=== PATIENT | male | born 1960 | race Caucasian/White ===

== ENCOUNTER → 2016-07-19 | Outpatient (CLI) | payer BC ==
--- NOTE | 2016-07-24 10:21 | P.ARTDOP ---
Arterial Doppler LOWER EXTREMITY ARTERIAL DOPPLER: DATE OF SERVICE: 07/19/2016 Reason for study: Decreased pulses, suspect vasospasm. Doppler waveforms: Multiphasic bilaterally throughout. Pulse volume recording: Normal configuration. Pressure gradients: None. Ankle-brachial indices: Greater than 1 bilaterally. Toe pressures: 161 on the right, 159 on the left Impression: Normal study.
== END | disposition home or self-care (01) ==
LOC: RADUSWWP 12:54
PROVIDERS: ATTEND Family Medicine
DX: I73.9 Peripheral vascular disease, unspecified (principal)
CPT/HCPCS: 93923

== ENCOUNTER 2022-11-20 08:15 | Inpatient (IN) | payer BC, OTHER ==
[2022-11-20] MEDS ORDERED: ASPIRIN 81 MG PO STA (08:30)
[2022-11-20] MEDS ORDERED: NITROGLYCERIN OINT 1 INCH/GM PACKET TOPICAL STA (08:30)
--- NOTE | 2022-11-20 08:33 | ED ---
General Adult HPI - General Chief complaint: Chest Pain Stated complaint: chest pressure Time Seen by Provider: 11/20/22 08:28 Source: patient, RN notes reviewed Mode of arrival: ambulatory Limitations: no limitations - History of Present Illness Initial comments: Patient is a pleasant 62-year-old male presenting to the emergency department with concerns with chest discomfort. Onset of symptoms was a couple hours ago while driving to work. Discomfort like pressure indigestion. Discomfort was 7/10 with some radiation towards the left arm. Discomfort is improved and only 3/10 at this time. No associated dyspnea or diaphoresis. Patient states mild nausea. No history of similar symptoms previously. - Related Data Home Medications Medication Instructions Recorded Confirmed Aspirin EC [Ecotrin Low Dose] 162 mg PO ONCE PRN 11/20/22 11/20/22 Canagliflozin [Invokana] 300 mg PO DAILY 11/20/22 11/20/22 Glimepiride [Amaryl] 1 mg PO DAILY 11/20/22 11/20/22 Irbesartan [Avapro] 150 mg PO DAILY 11/20/22 11/20/22 Omeprazole 20 mg PO DAILY 11/20/22 11/20/22 Pioglitazone [Actos] 30 mg PO DAILY 11/20/22 11/20/22 atenoloL 25 mg PO DAILY 11/20/22 11/20/22 methocarbamoL [Robaxin-750] 750 mg PO Q6H PRN 11/20/22 11/20/22 Allergies Allergy/AdvReac Type Severity Reaction Status Date / Time rosuvastatin [From Crestor] AdvReac Muscle pain Verified 11/20/22 09:32 Review of Systems ROS Statement: Those systems with pertinent positive or pertinent negative responses have been documented in the HPI. ROS Other: All systems not noted in ROS Statement are negative. Constitutional: Denies: fever Eyes: Denies: eye pain ENT: Denies: ear pain Respiratory: Denies: cough Cardiovascular: Reports: as per HPI, chest pain Endocrine: Denies: fatigue Gastrointestinal: Reports: as per HPI. Denies: abdominal pain, vomiting Genitourinary: Denies: dysuria Musculoskeletal: Denies: back pain Skin: Denies: rash Neurological: Denies: weakness General Exam Limitations: no limitations General appearance: alert, in no apparent distress Head exam: Present: normocephalic Eye exam: Present: normal appearance Neck exam: Present: normal inspection Respiratory exam: Present: normal lung sounds bilaterally. Absent: chest wall tenderness Cardiovascular Exam: Present: regular rate, normal rhythm, normal heart sounds Expanded Peripheral pulses: 2+: Radial (R), Radial (L), Dorsalis Pedis (R), Dorsalis Pedis (L) GI/Abdominal exam: Present: soft. Absent: tenderness Extremities exam: Present: normal inspection. Absent: pedal edema, calf tenderness Neurological exam: Present: alert Psychiatric exam: Present: normal affect, normal mood Skin exam: Present: normal color Course Vital Signs 11/20/22 11/20/22 08:22 08:34 Temperature 98.1 F Pulse Rate 97 64 Respiratory 18 18 Rate Blood Pressure 173/93 180/104 O2 Sat by Pulse 99 99 Oximetry - Reevaluation(s) Reevaluation #1: 11/20/22 09:04 Case was discussed with Dr. Santos who will come evaluate EKG Findings - EKG Results: EKG: interpreted by ERMD (some inferior ST depression. Borderline elevation in aVL and lead 1.), sinus rhythm, normal axis, normal QRS Medical Decision Making - Medical Decision Making Was pt. sent in by a medical professional or institution (, PA, RAW STOCK DYEING MACHINE TENDER, urgent care, hospital, or prison...) When possible be specific @ -[No] Did you speak to anyone other than the patient for history (EMS, parent, family, police, friend...)? What history was obtained from this source @ - is present and helps quite history including history of not having similar symptoms previous Did you review nursing and triage notes (agree or disagree)? Why? @ -[I reviewed and agree with nursing and triage notes] Were old charts reviewed (outside hosp., previous admission, EMS record, old EKG, old radiological studies, urgent care reports/EKG's, prison records)? Report findings @ -Unable to find old EKG when searching through old charts. Patient does have history of stress test from 2014 Differential Diagnosis (chest pain, altered mental status, abdominal pain women, abdominal pain men, vaginal bleeding, weakness, fever, dyspnea, syncope, headache, dizziness, GI bleed, back pain, seizure, CVA, palpatations, mental h ealth, musculoskeletal)? @ -Differential Chest Pain: Stable Angina, Unstable Angina, STEMI, NSTEMI Aortic Dissection, Pneumothorax, Musculoskeletal, Esophageal Spasm GERD, Cholecystitis, Pancreatitis, Zoster, this is not meant to be an all-inclusive list. EKG interpreted by me (3pts min.). @ -[As above] X-rays interpreted by me (1pt min.). @ -Chest x-ray shows no acute process CT interpreted by me (1pt min.). @ -[None done] U/S interpreted by me (1pt. min.). @ -[None done] What testing was considered but not performed or refused? (CT, X-rays, U/S, labs)? Why? @ -[None] What meds were considered but not given or refused? Why? @ -[None] Did you discuss the management of the patient with other professionals (professionals i.e. , PA, RAW STOCK DYEING MACHINE TENDER, lab, RT, psych nurse, case management social worker, shell molding roller blast operator, teacher, housing management officer, employment case manager)? Give summary @ -Case was discussed with Dr. Santos who did come evaluate patient and did take patient to the [facility]. Case also discussed with Dr. richard who will admit Was smoking cessation discussed for >3mins.? @ -[No] Was critical care preformed (if so, how long)? @ -31 minutes critical care time Were there social determinants of health that impacted care today? How? (Homelessness, low income, unemployed, alcoholism, drug addiction, transportation, low edu. Level, literacy, decrease access to med. care, long term, rehab)? @ -[No] Was there de-escalation of care discussed even if they declined (Discuss DNR or withdrawal of care, Hospice)? DNR status @ -[No] What co-morbidities impacted this encounter? (DM, HTN, Smoking, COPD, CAD, Cancer, CVA, ARF, Chemo, Hep., AIDS, mental health diagnosis, sleep apnea, morbid obesity)? @ -[None] Was patient admitted / discharged? Hospital course, mention meds given and route, prescriptions, significant lab abnormalities, going to OR and other pertinent info. @ -Patient reevaluated and unchanged. Patient and family are updated on results. Patient was seen by cardiology with plan to go to [facility]. Patient will be admitted. Heparin started. Admission orders written. Undiagnosed new problem with uncertain prognosis? @ -[No] Drug Therapy requiring intensive monitoring for toxicity (Heparin, Nitro, Insulin, Cardizem)? @ -[No] Were any procedures done? @ -[No] Diagnosis/symptom? @ -nstemi Acute, or Chronic, or Acute on Chronic? @ -acute Uncomplicated (without systemic symptoms) or Complicated (systemic symptoms)? @ -[default] Side effects of treatment? @ -[No] Exacerbation, Progression, or Severe Exacerbation? @ -[No] Poses a threat to life or bodily function? How? (Chest pain, USA, DC, pneumonia, PE, COPD, DKA, ARF, appy, cholecystitis, CVA, Diverticulitis, Homicidal, Suicidal, threat to staff... and all critical care pts) @ -[No] - Lab Data Result diagrams: 11/20/22 08:36 11/20/22 08:36 Lab Results 11/20/22 11/20/22 11/20/22 Range/Units 08:36 08:36 08:36 WBC 6.1 (3.8-10.6) k/uL RBC 4.70 (4.30-5.90) m/uL Hgb 14.7 (13.0-17.5) gm/dL Hct 43.6 (39.0-53.0) % MCV 92.7 (80.0-100.0) fL MCH 31.3 (25.0-35.0) pg MCHC 33.8 (31.0-37.0) g/dL RDW 13.6 (11.5-15.5) % Plt Count 199 (150-450) k/uL MPV 7.5 Neutrophils % 61 % Lymphocytes % 27 % Monocytes % 7 % Eosinophils % 4 % Basophils % 0 % Neutrophils # 3.7 (1.3-7.7) k/uL Lymphocytes # 1.6 (1.0-4.8) k/uL Monocytes # 0.4 (0-1.0) k/uL Eosinophils # 0.2 (0-0.7) k/uL Basophils # 0.0 (0-0.2) k/uL PT 10.2 (9.0-12.0) sec INR 1.0 (<1.2) APTT 23.5 (22.0-30.0) sec D-Dimer 0.35 (<0.60) mg/L FEU Sodium 140 (137-145) mmol/L Potassium 4.1 (3.5-5.1) mmol/L Chloride 106 (98-107) mmol/L Carbon Dioxide 24 (22-30) mmol/L Anion Gap 10 mmol/L BUN 13 (9-20) mg/dL Creatinine 0.78 (0.66-1.25) mg/dL Est GFR (CKD-EPI)AfAm >90 (>60 ml/min/1.73 sqM) Est GFR (CKD-EPI)NonAf >90 (>60 ml/min/1.73 sqM) Glucose 149 H (74-99) mg/dL Calcium 9.4 (8.4-10.2) mg/dL Magnesium 1.9 (1.6-2.3) mg/dL Total Bilirubin 0.7 (0.2-1.3) mg/dL AST 34 (17-59) U/L ALT 36 (4-49) U/L Alkaline Phosphatase 75 (38-126) U/L Troponin I (0.000-0.034) ng/mL Total Protein 7.6 (6.3-8.2) g/dL Albumin 4.4 (3.5-5.0) g/dL Amylase 37 (30-110) U/L Lipase 129 (23-300) U/L 11/20/22 Range/Units 08:36 WBC (3.8-10.6) k/uL RBC (4.30-5.90) m/uL Hgb (13.0-17.5) gm/dL Hct (39.0-53.0) % MCV (80.0-100.0) fL MCH (25.0-35.0) pg MCHC (31.0-37.0) g/dL RDW (11.5-15.5) % Plt Count (150-450) k/uL MPV Neutrophils % % Lymphocytes % % Monocytes % % Eosinophils % % Basophils % % Neutrophils # (1.3-7.7) k/uL Lymphocytes # (1.0-4.8) k/uL Monocytes # (0-1.0) k/uL Eosinophils # (0-0.7) k/uL Basophils # (0-0.2) k/uL PT (9.0-12.0) sec INR (<1.2) APTT (22.0-30.0) sec D-Dimer (<0.60) mg/L FEU Sodium (137-145) mmol/L Potassium (3.5-5.1) mmol/L Chloride (98-107) mmol/L Carbon Dioxide (22-30) mmol/L Anion Gap mmol/L BUN (9-20) mg/dL Creatinine (0.66-1.25) mg/dL Est GFR (CKD-EPI)AfAm (>60 ml/min/1.73 sqM) Est GFR (CKD-EPI)NonAf (>60 ml/min/1.73 sqM) Glucose (74-99) mg/dL Calcium (8.4-10.2) mg/dL Magnesium (1.6-2.3) mg/dL Total Bilirubin (0.2-1.3) mg/dL AST (17-59) U/L ALT (4-49) U/L Alkaline Phosphatase (38-126) U/L Troponin I 0.108 H* (0.000-0.034) ng/mL Total Protein (6.3-8.2) g/dL Albumin (3.5-5.0) g/dL Amylase (30-110) U/L Lipase (23-300) U/L Critical Care Time Critical Care Time: Yes Total Critical Care Time: 31 Disposition Clinical Impression: Acute non-ST elevation myocardial infarction (NSTEMI) Disposition: ADMITTED IP TO THIS [facility] Condition: Serious Is patient prescribed a controlled substance at d/c from ED?: No Referrals: Genet Wesley MD [Primary Care Provider] - 1-2 days Time of Disposition: 09:52
[2022-11-20 08:45] LABS: Basophils % (A) 0 %; Eosinophils # (A) 0.2 k/uL (0-0.7); Eosinophils % (A) 4 %; HCT 43.6 % (39.0-53.0); HGB 14.7 gm/dL (13.0-17.5); Lymphocytes # (A) 1.6 k/uL (1.0-4.8); Lymphocytes % (A) 27 %; MCH 31.3 pg (25.0-35.0); MCHC 33.8 g/dL (31.0-37.0); MCV 92.7 fL (80.0-100.0); Mean Platelet Volume 7.5; Monocytes # (A) 0.4 k/uL (0-1.0); Monocytes % (A) 7 %; Neutrophils # (A) 3.7 k/uL (1.3-7.7); Neutrophils % (A) 61 %; Platelet Count 199 k/uL (150-450); RDW 13.6 % (11.5-15.5); WBC 6.1 k/uL (3.8-10.6)
[2022-11-20] MEDS ORDERED: HEPARIN SODIUM 1,000 UN/ML (10ML VL) IV PRN (09:05)
[2022-11-20] MEDS ORDERED: HEPARIN SODIUM 1,000 UN/ML (10ML VL) IV ONE (09:05)
--- NOTE | 2022-11-20 09:10 | XR ---
EXAMINATION TYPE: XR chest 2V DATE OF EXAM: 11/20/2022 COMPARISON: NONE TECHNIQUE: PA and lateral views submitted. HISTORY: Chest pain FINDINGS: The lungs are clear and there is no pneumothorax, pleural effusion, or focal pneumonia. Heart size normal and no overt failure. Osseous structures demonstrate hypertrophic and degenerative changes of the spine. Atherosclerotic change aorta. IMPRESSION: 1. No acute process.
[2022-11-20 09:14] LABS: ALT 36 U/L (4-49); AST 34 U/L (17-59); African American GFR (CKD) >90 (>60 ml/min/1.73 sqM); Albumin 4.4 g/dL (3.5-5.0); Alkaline Phosphatase 75 U/L (38-126); Amylase 37 U/L (30-110); Anion Gap 10 mmol/L; Blood Urea Nitrogen 13 mg/dL (9-20); Calcium 9.4 mg/dL (8.4-10.2); Carbon Dioxide 24 mmol/L (22-30); Chloride 106 mmol/L (98-107); Glucose 149 mg/dL (74-99); Lipase 129 U/L (23-300); Magnesium 1.9 mg/dL (1.6-2.3); Non-African American GFR(CKD) >90 (>60 ml/min/1.73 sqM); Potassium 4.1 mmol/L (3.5-5.1); Sodium 140 mmol/L (137-145); Total Bilirubin 0.7 mg/dL (0.2-1.3); Total Protein 7.6 g/dL (6.3-8.2)
[2022-11-20] MEDS ORDERED: HEPARIN SOD,PORK IN 0.45% NACL 25,000 UNIT in 0.45% NACL 1 250ML.BAG IV SCH (09:15)
[2022-11-20 09:27] LABS: Partial Thromboplastin Time 23.5 sec (22.0-30.0); Prothrombin Time 10.2 sec (9.0-12.0)
[2022-11-20] MEDS ORDERED: MIDAZOLAM 2 MG/2 ML VIAL IVP ONE (09:45)
[2022-11-20] MEDS ORDERED: fentaNYL (PF) 50 MCG/ML 2 ML AMP IVP ONE (09:45)
[2022-11-20] MEDS ORDERED: LIDOCAINE 1% INJ 10MG/ML (5 ML VIAL-PF) SQ ONE (09:48)
[2022-11-20] MEDS ORDERED: VERAPAMIL SYRINGE (5 MG/10 ML) INTRAARTER ONE (09:49)
[2022-11-20] MEDS ORDERED: NITROGLYCERIN SL TABS 0.4 MG TAB SUBLINGUAL PRN ×2 (09:52→10:53)
--- NOTE | 2022-11-20 10:01 | CONS ---
CONSULTATION CHIEF COMPLAINT: Chest pain. HISTORY OF PRESENT ILLNESS: Mr. Guzman is a 62-year-old gentleman with history of hypertension, diabetes, dyslipidemia who presented to [facility] with chest pain. He comes in complaining of chest discomfort, pressure-like, 7/10 intensity with left arm radiation. It started about couple of hours ago while he was trying to work. It got worse while at work. He took an aspirin that belongs to one of his coworkers and came to the ER. His EKG shows sinus rhythm with inferior ST-segment depression and subtle ST elevation in leads 1 and aVL. I was called around 9:02 about the patient. I saw him around 9:04 and decided to take the patient to slabbing machine operator urgently. The patient appears comfortable at rest, hemodynamically stable. While his chest and arm discomfort have improved, they have not resolved. So far, the patient has not received any medications. I instructed the nurse taking care of the patient to expeditiously start aspirin, nitrates, and intravenous heparin. I called the slabbing machine operator and took the patient who was currently on the table off the table and asked him to expeditiously move the patient for urgent cardiac catheterization. The patient and his were explained the risks, benefits, and alternatives. PAST MEDICAL HISTORY: Significant for hypertension, diabetes, dyslipidemia. MEDICATIONS: I do not have a list of his medications. ALLERGIES: None. FAMILY HISTORY: Negative for premature coronary artery disease. SOCIAL HISTORY: Negative for current smoking, EtOH abuse, or drug abuse. REVIEW OF SYSTEMS: review of systems was performed. Pertinents are as documented. LABORATORY DATA: Labs show a hemoglobin of 14.7, platelet count is 199, white cell count is 6. Potassium is 4.1 creatinine is 0.78. AST and ALT are within normal limits. Troponin is pending at this time. EKG is abnormal as described above. PHYSICAL EXAMINATION: GENERAL: Comfortable at rest. VITAL SIGNS: Blood pressure is elevated at 170/93, respiratory rate is 18. NECK: There is no jugular venous distention. Carotid upstroke is normal. There is no bruit. CHEST: Good air entry bilaterally. HEART: First and second heart sounds. No gallop. No murmur. ABDOMEN: Soft. EXTREMITIES: Did not reveal any edema. Peripheral pulses are felt. ASSESSMENT: Acute coronary syndrome. PLAN: The patient will undergo urgent cardiac catheterization. MMODL / IJN: [id number] /
[2022-11-20] MEDS ORDERED: PRASUGREL 10 MG TAB PO ONE (10:11)
[2022-11-20] MEDS: HEPARIN SODIUM 1,000 UN/ML (10ML VL) IVP ONE ×3 (10:12→10:40)
[2022-11-20] MEDS ORDERED: IOPAMIDOL-370 100ML BTL INJ ONE (10:33)
[2022-11-20] MEDS ORDERED: SODIUM CHLORIDE 0.9% 1,000 ML IV ONE (10:34)
--- NOTE | 2022-11-20 10:37 | CC ---
CARDIAC CATHETERIZATION REPORT INDICATION: Acute coronary syndrome. PROCEDURE NOTE: After obtaining informed consent, left heart catheterization and coronary angiogram were performed via the right radial artery using standard Lucinda catheters. The patient tolerated the procedure well without any obvious immediate complications. The patient received moderate conscious sedation. Total sedation time was 18 minutes. The right radial artery access was obtained using Seldinger technique. A 6-Danish sheath was placed. Catheters and wires were floated into the ascending aorta under fluoroscopic guidance. The patient received verapamil and just received 4000 units of heparin bolus in the emergency room and was on heparin drip and so we did not give any additional heparin at this time. FINDINGS: 1. Hemodynamics: Left ventricular end-diastolic pressure is 28 mm. There is no significant gradient across the aortic valve. 2. Left ventriculogram: Left ventriculogram was not performed. 3. Angiographic data: a.Right coronary artery: Right coronary artery is a large dominant vessel and shows a focal area of 80% to 90% stenosis with what appears like an area of plaque rupture in the mid RCA. b.Left main coronary artery appears calcified, but is free of significant stenosis. Divides into left anterior descending coronary artery and circumflex coronary artery. Circumflex coronary artery is a nondominant vessel that is free of significant stenosis. LAD appears calcified. There is a long segment of narrowing from proximal to mid LAD. At its worst, it seems to be a 70% stenosis. CONCLUSIONS: Two-vessel coronary artery disease as described above. The lesion in the right coronary artery seems acute. The patient will undergo angioplasty of that and we will treat him with optimal medical therapy and see how he does, and if necessary, consider staged angioplasty of the LAD. MMODL / IJN: [id number] /
[2022-11-20] MEDS ORDERED: ATROPINE SULFATE 0.1 MG/ML 10ML SYRINGE IV PRN (10:53)
[2022-11-20] MEDS ORDERED: ZOLPIDEM 5 MG TAB PO PRN (10:53)
[2022-11-20] MEDS ORDERED: MAG HYDROX/AL HYDROX/SIMETH 30 ML CUP PO PRN (10:53)
[2022-11-20] MEDS ORDERED: RX INFO: IV CONTRAST WAS GIVEN 1 EACH MISC MISCELLANE PRN (10:53)
[2022-11-20] MEDS ORDERED: SODIUM CHLORIDE 0.9% 1,000 ML in EMPTY BAG 1 BAG IV SCH (11:00)
--- NOTE | 2022-11-20 11:01 | P.CARDCATH ---
Date of Procedure: 11/20/22 Description of Procedure: PERCUTANEOUS TRANSLUMINAL CORONARY ANGIOPLASTY CLINICAL INFORMATION: The patient is a 62-year-old male with known history of hypertension, hyperlipidemia and diabetes who presented with non-STEMI, underwent cardiac catheterization by Dr Alcala and was found to have significant obstructive disease involving the RCA. Recommendations were made regarding angioplasty and stenting. The procedure as well as the risks and the complications were discussed with the patient who was in full understanding and agreement. PROCEDURE: A 6 Cymraes 0.75 AL guiding catheter was introduced into the system. After cannulating the right coronary ostium, a 0.014 BMW was advanced across the lesion and positioned distally. Following that a 2.5 x 12 Treck balloon was advanced and inflated at 8 atmosphere. After removing the balloon a [employer] intravascular ultrasound catheter was advanced and imaging were obtained. Following that a 4.0 x 28 mm Xience Thi point stent was deployed. It was dilated at 16. After the last inflation, after appropriate wait, the balloon and the guidewire were withdrawn back into the guiding catheter. Images were obtained and repeated. Those images reveal stable successful stenting. At that point, the guiding catheter, the balloon, and guidewire were removed. The sheath was removed. Hemostasis was obtained with deployment of a TR band. There were no immediate complications. The patient was returned to the room in stable condition. Of note, the patient received an additional 4000 units of heparin as well as Effient. His ACT was followed. There was no immediate complications. He had chest discomfort and EKG changes with the inflations that resolved at the end of the procedure. RESULTS: Successful stenting of the mid RCA with reduction of stenosis from 90 % to 0 % with intravascular ultrasound imaging. RECOMMENDATIONS: The patient will continue on aspirin and Effient for 12 months without any interruption in addition to aggressive coronary risks modifications. He will be followed regarding the need to undergo revascularization of the LAD. The findings and recommendations were discussed with the patient and the family, they are in full understanding and agreement. Duration of sedation: 23 minutes
[2022-11-20] MEDS: METOPROLOL TARTRATE 25 MG TAB PO SCH ×3 (12:28→20:33)
[2022-11-20] MEDS ORDERED: methocarbamoL 750 MG TAB PO PRN (16:41)
[2022-11-20 16:45] LABS: Glucose,Whole Blood 79 mg/dL (70-110)
[2022-11-20 17:01] LABS: Chol/HDL Ratio 5.48 Ratio
[2022-11-20 20:31] LABS: Glucose,Whole Blood 112 mg/dL (70-110)
[2022-11-20] MEDS: ATORVASTATIN 80 MG TAB PO SCH (20:33)
[2022-11-20] MEDS: HEPARIN SODIUM,PORCINE/PF 5,000 UNIT/0.5 ML SYRINGE SQ SCH (20:33)
[2022-11-20] MEDS: FAMOTIDINE 20 MG/2 ML VIAL IV SCH (20:33)
--- NOTE | 2022-11-21 00:21 | P.HPIM ---
History of Present Illness This is a pleasant 62 years old male with past medical history of diabetes mellitus patient presents because of chest pain which is mainly felt like pressure on the left side with radiation to the left arm. Patient chest pain improved slightly with aspirin he took at home. Patient denies any other complaints. Patient underwent emergent catheterization with assistant baseball coach, she status post PCI to RCA. I saw the patient was the procedure was lying in bed comfortable. Patient please states that his chest pain was completely resolved. He denies any other symptom. The puncture site looks closed and healing. No other specific co mplaints Vitals are stable and patient is afebrile Labs were reviewed, patient has unremarkable CBC, INR, BMP, liver enzymes. D-dimer -0.35 Troponin is elevated at 0.108 Chest x-ray: No acute process. EKG showing possible ST elevation in aVL with ST depression in the inferior leads lead III and aVF As mentioned above, Patient underwent emergent stenting of the mid RCA with reduction of stenosis from 90% to 0% Patient is a started on aspirin and effient Review of Systems Review of systems CONSTITUTIONAL: No fever, no malaise, no fatigue. HEENT: No recent visual problems or hearing problems. Denied any sore throat. CARDIOVASCULAR: No orthopnea, PND, no palpitations, no syncope. PULMONARY: No shortness of breath, no cough, no hemoptysis. GASTROINTESTINAL: No diarrhea, no nausea, no vomiting, no abdominal pain. Normoactive bowel sounds. NEUROLOGICAL: No headaches, no weakness, no numbness. HEMATOLOGICAL: Denies any bleeding or petechiae. GENITOURINARY: Denies any burning micturition, frequency, or urgency. MUSCULOSKELETAL/RHEUMATOLOGICAL: Denies any joint pain, swelling, or any muscle pain. ENDOCRINE: Denies any polyuria or polydipsia. Past Medical History - Past Family History Mother Family Medical History: Cancer Additional Family Medical History / Comment(s): BRAIN CA Father Additional Family Medical History / Comment(s): EMPHYSEMIA Medications and Allergies Home Medications Medication Instructions Recorded Confirmed Type Aspirin EC [Ecotrin Low Dose] 162 mg PO ONCE PRN 11/20/22 11/20/22 History Canagliflozin [Invokana] 300 mg PO DAILY 11/20/22 11/20/22 History Glimepiride [Amaryl] 1 mg PO DAILY 11/20/22 11/20/22 History Irbesartan [Avapro] 150 mg PO DAILY 11/20/22 11/20/22 History Omeprazole 20 mg PO DAILY 11/20/22 11/20/22 History Pioglitazone [Actos] 30 mg PO DAILY 11/20/22 11/20/22 History atenoloL 25 mg PO DAILY 11/20/22 11/20/22 History methocarbamoL [Robaxin-750] 750 mg PO Q6H PRN 11/20/22 11/20/22 History Allergies Allergy/AdvReac Type Severity Reaction Status Date / Time rosuvastatin [From Crestor] AdvReac Muscle pain Verified 11/20/22 09:32 Physical Exam Vitals: Vital Signs Temp Pulse Pulse Resp BP BP Pulse Ox 11/20/22 12:38 66 16 172/99 100 11/20/22 12:08 68 16 155/78 98 11/20/22 11:38 72 16 149/80 97 11/20/22 11:23 89 16 145/87 98 11/20/22 11:08 86 16 147/99 98 11/20/22 10:53 86 16 154/90 97 11/20/22 09:52 86 16 174/99 97 11/20/22 08:34 64 18 180/104 99 11/20/22 08:22 98.1 F 97 18 173/93 99 Intake and Output 11/19/22 11/20/22 11/20/22 22:59 06:59 14:59 Intake Total 340 Balance 340 Intake: IV 100 Oral 240 Other: Weight 95.254 kg GENERAL: The patient is alert and oriented x3, not in any acute distress. Well developed, well nourished. HEENT: Pupils are round and equally reacting to light. EOMI. No scleral icterus. No conjunctival pallor. Normocephalic, atraumatic. No pharyngeal erythema. No thyromegaly. CARDIOVASCULAR: S1 and S2 present. No murmurs, rubs, or gallops. PULMONARY: Chest is clear to auscultation, no wheezing , no crackles. ABDOMEN: Soft, nontender, nondistended, normoactive bowel sounds. No palpable organomegaly. MUSCULOSKELETAL: No joint swelling or deformity. EXTREMITIES: No cyanosis, clubbing, or pedal edema. NEUROLOGICAL: Gross neurological examination did not reveal any focal deficits. SKIN: No rashes. no petechiae. Results CBC & Chem 7: 11/20/22 08:36 11/20/22 08:36 Labs: Abnormal Lab Results - Last 24 Hours (Table) 11/20/22 11/20/22 Range/Units 08:36 08:36 Glucose 149 H (74-99) mg/dL Troponin I 0.108 H* (0.000-0.034) ng/mL Assessment and Plan Assessment: Acute coronary syndrome with STEMI versus non-STEMI status post successful stenting of the RCA Diabetes mellitus Overweight with BMI of 29.3 Plan: Continue with dual antiplatelet therapy aspirin and effient Cardiology consult Continue with metoprolol Labs and medication were reviewed.. Continue same treatment. Continue with symptomatic treatment. Resume home medication. Monitor labs and vitals. DVT and GI prophylaxis. Further recommendations as per clinical course of the patient DVT prophylaxis: Subcutaneous heparin GI Prophylaxis: Pepcid
[2022-11-21 06:10] LABS: Glucose,Whole Blood 126 mg/dL (70-110)
--- NOTE | 2022-11-21 07:30 | CA ---
Transthoracic Echo Report Name: Joaquim Guzman Age: 62 Gender: M : 1960 Exam Date: 11/20/2022 13:00 Exam Location: [facility] Ht (in): 71 Wt (lb): 210 Ordering Physician: Sandra Fall MD ([id number]) Attending/Referring Phys: Job Superintendent Janie Shah RDCS Procedure CPT: Indications: WA Cardiac Hx: Technical Quality: Fair Contrast 1: Total Dose (mL): Contrast 2: Total Dose (mL): MEASUREMENTS (Male / Female) Normal Values 2D ECHO LV Diastolic Diameter PLAX 4.3 cm 4.2 - 5.9 / 3.9 - 5.3 cm LV Systolic Diameter PLAX 2.4 cm IVS Diastolic Thickness 1.4 cm 0.6 - 1.0 / 0.6 - 0.9 cm LVPW Diastolic Thickness 1.3 cm 0.6 - 1.0 / 0.6 - 0.9 cm LV Relative Wall Thickness 0.6 RV Internal Dim ED PLAX 3.3 cm LA Volume 60.6 cm??? 18 - 58 / 22 - 52 cm??? M-MODE Aortic Root Diameter MM 3.5 cm LA Systolic Diameter MM 4.0 cm LA Ao Ratio MM 1.1 AV Cusp Separation MM 2.2 cm DOPPLER AV Peak Velocity 103.1 cm/s AV Peak Gradient 4.3 mmHg AV Mean Velocity 74.6 cm/s AV Mean Gradient 2.4 mmHg AV Velocity Time Integral 21.9 cm LVOT Peak Velocity 96.4 cm/s LVOT Peak Gradient 3.7 mmHg LVOT Velocity Time Integral 19.5 cm MV Area PHT 5.7 cm??? Mitral E Point Velocity 51.1 cm/s Mitral A Point Velocity 81.7 cm/s Mitral E to A Ratio 0.6 MV Deceleration Time 133.2 ms MV E' Velocity 8.9 cm/s Mitral E to MV E' Ratio 5.7 TR Peak Velocity 221.3 cm/s TR Peak Gradient 19.6 mmHg FINDINGS Left Ventricle Mildly increased left ventricular wall thickness. Normal left ventricular wall motion. Left ventricular ejection fraction is estimated at 50-55 %. Mild inferoseptal and inferior wall hypokinesis Right Ventricle Normal right ventricular size and function. Right ventricular systolic pressure within normal limits. Right Atrium Normal right atrial size. Left Atrium Mildly increased left atrial volume. Mitral Valve Structurally normal mitral valve. No mitral stenosis. Mild mitral regurgitation. Aortic Valve Trileaflet aortic valve. No aortic valve stenosis or regurgitation. Tricuspid Valve Structurally normal tricuspid valve.mild tricuspid regurgitation. Pulmonic Valve Structurally normal pulmonic valve. Pericardium No pericardial effusion. Aorta Normal size aortic root and proximal ascending aorta. CONCLUSIONS 1. Borderline left ventricle systolic function 2. Mild mitral and tricuspid regurgitation Previewed by: Dr. Sandra Fall MD (Electronically Signed) Final Date: 21 November 2022 07:29
[2022-11-21 08:26] LABS: Basophils % (A) 0 %; Eosinophils # (A) 0.2 k/uL (0-0.7); Eosinophils % (A) 2 %; HCT 42.2 % (39.0-53.0); HGB 14.3 gm/dL (13.0-17.5); Lymphocytes # (A) 1.6 k/uL (1.0-4.8); Lymphocytes % (A) 20 %; MCHC 33.8 g/dL (31.0-37.0); MCV 91.7 fL (80.0-100.0); Mean Platelet Volume 7.9; Monocytes # (A) 0.5 k/uL (0-1.0); Monocytes % (A) 6 %; Neutrophils # (A) 5.4 k/uL (1.3-7.7); Neutrophils % (A) 70 %; Platelet Count 193 k/uL (150-450); RDW 13.8 % (11.5-15.5); WBC 7.8 k/uL (3.8-10.6)
[2022-11-21] MEDS: FAMOTIDINE 20 MG/2 ML VIAL IV SCH ×2 (08:30→20:51)
[2022-11-21] MEDS: HEPARIN SODIUM,PORCINE/PF 5,000 UNIT/0.5 ML SYRINGE SQ SCH (08:30)
[2022-11-21] MEDS: LOSARTAN 50 MG TAB PO SCH (08:30)
[2022-11-21] MEDS: ASPIRIN 81 MG PO SCH (08:30)
[2022-11-21] MEDS: METOPROLOL TARTRATE 25 MG TAB PO SCH (08:30)
[2022-11-21 08:31] LABS: INR 1.1 (<1.2)
[2022-11-21] MEDS: PIOGLITAZONE 30 MG TAB PO SCH (08:31)
[2022-11-21] MEDS: PRASUGREL 10 MG TAB PO SCH (08:31)
[2022-11-21] MEDS: GLIMEPIRIDE 1 MG TAB PO SCH (08:31)
[2022-11-21] MEDS: DAPAGLIFLOZIN PROPANEDIOL 10 MG TABLET PO SCH (08:31)
[2022-11-21 08:52] LABS: African American GFR (CKD) >90 (>60 ml/min/1.73 sqM); Anion Gap 9 mmol/L; Blood Urea Nitrogen 9 mg/dL (9-20); Calcium 9.3 mg/dL (8.4-10.2); Carbon Dioxide 25 mmol/L (22-30); Chloride 103 mmol/L (98-107); Glucose 122 mg/dL (74-99); Non-African American GFR(CKD) >90 (>60 ml/min/1.73 sqM); Potassium 3.8 mmol/L (3.5-5.1); Sodium 137 mmol/L (137-145)
[2022-11-21] MEDS ORDERED: ASPIRIN 325 MG TAB PO SCH (09:00)
[2022-11-21] MEDS ORDERED: METOPROLOL TARTRATE 25 MG TAB PO STA (09:56)
--- NOTE | 2022-11-21 10:03 | P.PN ---
Subjective Progress Note Date: 11/21/22 History of present illness: This is a 62-year-old male with past medical history of hypertension, diabetes, dyslipidemia presented to the hospital with chest pain 7/10 intensity with left arm radiation. EKG showed sinus rhythm with inferior ST segment depression and subtle ST elevation in leads 1 and aVL. Patient was taken to the cath lab radiology technician urgently. Today, patient is seen in the cardiac stepdown unit. Yesterday, patient underwent left heart catheterization with Dr London Alcala which revealed right coronary artery with 80-90% stenosis in mid LAD 70% stenosis. Patient subsequently underwent stent placement of the RCA and plan is for medical management of the LAD. Echocardiogram revealed EF 50-55% with mild MR and TR. Patient is seen today in follow-up. He denies having any chest pain or shortness of breath, no lightheadedness or dizziness. He has ambulated in his room. Patient's heart rate has been in the 90s, blood pressure 163/89, pulse ox 97% on room air. Physical examination: Gen: This is a 62-year-old male. He is resting bed appears to be comfortable and in no acute distress VS: reviewed HEENT: Head is atraumatic, normocephalic. Pupils equal, round. Sclerae is anicteric. NECK: Supple. No JVD. . LUNGS: Clear to auscultation. No wheezes or rhonchi. No intercostal re tractions. HEART: Regular rate and rhythm. No murmur. ABDOMEN: Soft No tenderness. EXTREMITIES: No pedal edema. No calf tenderness. NEUROLOGICAL: Patient is awake, alert and oriented x3. Assessment: Non-ST elevated myocardial infarction status post stent mid RCA 8/2 Hypertension Diabetes Dyslipidemia Plan: Continue current cardiac medications Increase metoprolol to 50 mg twice daily Plan to monitor patient another 24 hours Further recommendations to follow based upon clinical course Nurse practitioner note has been reviewed, I agree with documented findings and plan of care. Patient was seen and examined. Objective - Vital Signs Vital signs: Vital Signs Temp 98.2 F 11/21/22 08:29 Pulse 98 11/21/22 08:29 Resp 16 11/21/22 08:29 BP 163/89 11/21/22 08:29 Pulse Ox 97 11/21/22 09:01 FiO2 21 11/20/22 20:43 Intake & Output 11/20/22 11/21/22 11/21/22 18:59 06:59 18:59 Intake Total 960 Balance 960 Weight 95.254 kg Intake: IV 600 Oral 360 Other: Voiding Method Toilet # Voids 1 2 - Labs CBC & Chem 7: 11/21/22 06:58 11/21/22 06:58 Labs: Abnormal Lab Results - Last 24 Hours (Table) 11/20/22 11/20/22 11/20/22 Range/Units 08:36 13:19 13:19 Glucose (74-99) mg/dL POC Glucose (mg/dL) (70-110) mg/dL Troponin I 0.108 H* 5.460 H* (0.000-0.034) ng/mL Triglycerides 184.00 H (0.00-149.00) mg/dL Cholesterol 242.00 H (0.00-200.00) mg/dL LDL Cholesterol, Calc 161.0 H (0.0-131.0) mg/dL 11/20/22 11/20/22 11/21/22 Range/Units 15:57 20:30 06:08 Glucose (74-99) mg/dL POC Glucose (mg/dL) 112 H 126 H (70-110) mg/dL Troponin I 6.700 H* (0.000-0.034) ng/mL Triglycerides (0.00-149.00) mg/dL Cholesterol (0.00-200.00) mg/dL LDL Cholesterol, Calc (0.0-131.0) mg/dL 11/21/22 Range/Units 06:58 Glucose 122 H (74-99) mg/dL POC Glucose (mg/dL) (70-110) mg/dL Troponin I (0.000-0.034) ng/mL Triglycerides (0.00-149.00) mg/dL Cholesterol (0.00-200.00) mg/dL LDL Cholesterol, Calc (0.0-131.0) mg/dL
[2022-11-21 11:30] VITALS: BMI 29.2
[2022-11-21 11:45] LABS: Glucose,Whole Blood 113 mg/dL (70-110)
--- NOTE | 2022-11-21 14:03 | P.PN ---
Subjective Progress Note Date: 11/21/22 Patient seen and evaluated at bedside. Patient is alert and oriented 3. Care plans reviewed with patient and all questions answered. Discharge planning discussed in detail Review of system completed with pertinent positive as mentioned 11/21: Patient seen by cardiology, cardiac medications adjusted to be monitored overnight, patient denies chest pain Objective - Vital Signs Vital signs: Vital Signs Temp 98.2 F 11/21/22 08:29 Pulse 89 11/21/22 11:08 Resp 15 11/21/22 11:08 BP 160/94 11/21/22 11:08 Pulse Ox 96 11/21/22 11:08 FiO2 21 11/20/22 20:43 Intake & Output 11/20/22 11/21/22 11/21/22 18:59 06:59 18:59 Intake Total 960 840 Balance 960 840 Weight 95.254 kg 95.254 kg Intake: IV 600 Oral 360 840 Other: Voiding Method Toilet # Voids 1 2 0 - Exam PHYSICAL EXAMINATION: GENERAL: The patient is alert and oriented x3, not in any acute distress. Well developed, well nourished. HEENT: Pupils are round and equally reacting to light. EOMI. No scleral icterus. No conjunctival pallor. Normocephalic, atraumatic. No pharyngeal erythema. No thyromegaly. CARDIOVASCULAR: S1 and S2 present. No murmurs, rubs, or gallops. PULMONARY: Chest is clear to auscultation, no wheezing or crackles. ABDOMEN: Soft, nontender, nondistended, normoactive bowel sounds. No palpable organomegaly. MUSCULOSKELETAL: No joint swelling or deformity. EXTREMITIES: No cyanosis, clubbing, or pedal edema. NEUROLOGICAL: Gross neurological examination did not reveal any focal deficits. SKIN: No rashes. - Labs CBC & Chem 7: 11/21/22 06:58 11/21/22 06:58 Labs: Abnormal Lab Results - Last 24 Hours (Table) 11/20/22 11/20/22 11/20/22 Range/Units 13:19 13:19 15:57 Glucose (74-99) mg/dL POC Glucose (mg/dL) (70-110) mg/dL Troponin I 5.460 H* 6.700 H* (0.000-0.034) ng/mL Triglycerides 184.00 H (0.00-149.00) mg/dL Cholesterol 242.00 H (0.00-200.00) mg/dL LDL Cholesterol, Calc 161.0 H (0.0-131.0) mg/dL 11/20/22 11/21/22 11/21/22 Range/Units 20:30 06:08 06:58 Glucose 122 H (74-99) mg/dL POC Glucose (mg/dL) 112 H 126 H (70-110) mg/dL Troponin I (0.000-0.034) ng/mL Triglycerides (0.00-149.00) mg/dL Cholesterol (0.00-200.00) mg/dL LDL Cholesterol, Calc (0.0-131.0) mg/dL 11/21/22 Range/Units 11:43 Glucose (74-99) mg/dL POC Glucose (mg/dL) 113 H (70-110) mg/dL Troponin I (0.000-0.034) ng/mL Triglycerides (0.00-149.00) mg/dL Cholesterol (0.00-200.00) mg/dL LDL Cholesterol, Calc (0.0-131.0) mg/dL Assessment and Plan Assessment: Assesement * Non-ST elevated WA status post stent in mid RCA * Diabetes mellitus * Hypertension * Hyperlipidemia * Plan * In regards to coronary artery disease continue aspirin, metoprolol, Effient, Lipitor * In regards to history of diabetes mellitus Accu-Cheks before meals and at bedtime continue patient on Actos, amaryl, insulin insulin ordered * Echocardiogram shows ejection fraction of 50-55%, continue Cozaar, metoprolol
[2022-11-21 16:52] LABS: Glucose,Whole Blood 142 mg/dL (70-110)
[2022-11-21] MEDS: INSULIN ASPART (NovoLOG) 100 UNIT/ML VIAL SQ SCH ×2 (17:07→20:19)
[2022-11-21 17:10] LABS: Chol/HDL Ratio 6.51 Ratio
[2022-11-21 20:12] LABS: Glucose,Whole Blood 128 mg/dL (70-110)
[2022-11-21] MEDS: HEPARIN SODIUM,PORCINE 5,000 UNIT/ML 1 ML VIAL SQ SCH (20:50)
[2022-11-21] MEDS: ATORVASTATIN 80 MG TAB PO SCH (20:51)
[2022-11-21] MEDS: METOPROLOL TARTRATE 50 MG TAB PO SCH (20:57)
[2022-11-22 06:02] LABS: Glucose,Whole Blood 120 mg/dL (70-110)
[2022-11-22] MEDS: INSULIN ASPART (NovoLOG) 100 UNIT/ML VIAL SQ SCH (06:04)
[2022-11-22 06:18] VITALS: TEMP 97.9
[2022-11-22] MEDS: DAPAGLIFLOZIN PROPANEDIOL 10 MG TABLET PO SCH (08:41)
[2022-11-22] MEDS: LOSARTAN 50 MG TAB PO SCH (08:42)
[2022-11-22] MEDS: ASPIRIN 81 MG PO SCH (08:42)
[2022-11-22] MEDS: PRASUGREL 10 MG TAB PO SCH (08:42)
[2022-11-22] MEDS: PIOGLITAZONE 30 MG TAB PO SCH (08:42)
[2022-11-22] MEDS: METOPROLOL TARTRATE 50 MG TAB PO SCH (08:42)
[2022-11-22] MEDS: GLIMEPIRIDE 1 MG TAB PO SCH (08:42)
[2022-11-22] MEDS: FAMOTIDINE 20 MG/2 ML VIAL IV SCH (08:42)
[2022-11-22] MEDS: HEPARIN SODIUM,PORCINE 5,000 UNIT/ML 1 ML VIAL SQ SCH (08:42)
[2022-11-22 08:46] LABS: African American GFR (CKD) >90 (>60 ml/min/1.73 sqM); Anion Gap 12 mmol/L; Blood Urea Nitrogen 14 mg/dL (9-20); Calcium 9.6 mg/dL (8.4-10.2); Carbon Dioxide 23 mmol/L (22-30); Chloride 101 mmol/L (98-107); Glucose 124 mg/dL (74-99); Non-African American GFR(CKD) >90 (>60 ml/min/1.73 sqM); Potassium 4.2 mmol/L (3.5-5.1); Sodium 136 mmol/L (137-145)
[2022-11-22 08:48] VITALS: BP 127/75; PULSE 108; RESP 16
[2022-11-22 11:16] LABS: Glucose,Whole Blood 169 mg/dL (70-110)
--- NOTE | 2022-11-22 12:13 | P.DS ---
Providers Date of admission: 11/20/22 09:53 Expected date of discharge: 11/22/22 Attending physician: Betito Alford MD Consults: 11/20/22 09:52 Consult Physician Urgent Consulting Provider: Parker Alcala Consult Reason/Comments: nstemi Do you want consulting provider notified?: Already Contacted 11/20/22 10:53 Consult Physician Routine Consulting Provider: [facility] Consult Reason/Comments: Post Interventional Patient Do you want consulting provider notified?: Already Contacted Primary care physician: [facility] Course: 62 years old male with past medical history of diabetes mellitus patient presents because of chest pain which is mainly felt like pressure on the left side with radiation to the left arm. Patient chest pain improved slightly with aspirin he took at home. Patient underwent emergent catheterization with synthetic department supervisor, she status post PCI to RCA. Labs were reviewed, patient has unremarkable CBC, INR, BMP, liver enzymes. D-dimer -0.35 Troponin is elevated at 0.108 Chest x-ray: No acute process. EKG showing possible ST elevation in aVL with ST depression in the inferior leads lead III and aVF Patient underwent emergent stenting of the mid RCA with reduction of stenosis from 90% to 0% Patient is a started on aspirin and effient Patient was followed up by cardiology, cardiac medications were adjusted and discharged home in stable condition PHYSICAL EXAMINATION: GENERAL: The patient is alert and oriented x3, not in any acute distress. Well developed, well nourished. HEENT: Pupils are round and equally reacting to light. EOMI. No scleral icterus. No conjunctival pallor. Normocephalic, atraumatic. No pharyngeal erythema. No thyromegaly. CARDIOVASCULAR: S1 and S2 present. No murmurs, rubs, or gallops. Right radial access no hematoma noted PULMONARY: Chest is clear to auscultation, no wheezing or crackles. ABDOMEN: Soft, nontender, nondistended, normoactive bowel sounds. No palpable organomegaly. MUSCULOSKELETAL: No joint swelling or deformity. EXTREMITIES: No cyanosis, clubbing, or pedal edema. NEUROLOGICAL: Gross neurological examination did not reveal any focal deficits. SKIN: No rashes. Assessment: Assessment: Acute coronary syndrome non-STEMI status post successful stenting of the RCA Diabetes mellitus type 2 Overweight with BMI of 29.3 Hyperlipidemia Hypertension Plan: Continue with dual antiplatelet therapy aspirin and effient Cardiology consulted, recommended for discharge Continue with metoprolol, FRANCIS, aspirin, Lipitor Patient follow-up with cardiology Patient Condition at Discharge: Fair Plan - Discharge Summary Discharge Rx Participant: Yes New Discharge Prescriptions: New Atorvastatin [Lipitor] 80 mg PO HS #90 tab Aspirin 81 mg PO DAILY #90 tab Prasugrel [Effient] 10 mg PO DAILY #90 tab Metoprolol Tartrate [Lopressor] 50 mg PO BID #180 tab Nitroglycerin Sl Tabs [Nitrostat] 0.4 mg SUBLINGUAL Q5M PRN #25 tab PRN Reason: Chest Pain Continue Omeprazole 20 mg PO DAILY Pioglitazone [Actos] 30 mg PO DAILY Irbesartan [Avapro] 150 mg PO DAILY methocarbamoL [Robaxin-750] 750 mg PO Q6H PRN PRN Reason: Muscle Spasm Canagliflozin [Invokana] 300 mg PO DAILY Glimepiride [Amaryl] 1 mg PO DAILY Discontinued Aspirin EC [Ecotrin Low Dose] 162 mg PO ONCE PRN PRN Reason: Chest Pain atenoloL 25 mg PO DAILY Discharge Medication List Canagliflozin [Invokana] 300 mg PO DAILY 11/20/22 [History] Glimepiride [Amaryl] 1 mg PO DAILY 11/20/22 [History] Irbesartan [Avapro] 150 mg PO DAILY 11/20/22 [History] Omeprazole 20 mg PO DAILY 11/20/22 [History] Pioglitazone [Actos] 30 mg PO DAILY 11/20/22 [History] methocarbamoL [Robaxin-750] 750 mg PO Q6H PRN 11/20/22 [History] Aspirin 81 mg PO DAILY #90 tab 11/22/22 [Rx] Atorvastatin [Lipitor] 80 mg PO HS #90 tab 11/22/22 [Rx] Metoprolol Tartrate [Lopressor] 50 mg PO BID #180 tab 11/22/22 [Rx] Nitroglycerin Sl Tabs [Nitrostat] 0.4 mg SUBLINGUAL Q5M PRN #25 tab 11/22/22 [Rx] Prasugrel [Effient] 10 mg PO DAILY #90 tab 11/22/22 [Rx] Follow up Appointment(s)/Referral(s): Genet Wesley MD [Primary Care Provider] - 1-2 days Parker Alcala MD [STAFF PHYSICIAN] - 1 Week (THE OFFICE WILL CALL YOU WITH AN APPOINTMENT DATE AND TIME ) Patient Instructions/Handouts: Moderate Sedation (DC), After Radial Heart Catheterization (GEN) Activity/Diet/Wound Care/Special Instructions: *NO LIFTING, PUSHING, OR PULLING ANYTHING OVER 5 POUNDS FOR 5 DAYS *NO DRIVING FOR 3 DAYS *YOU CAN REMOVE YOUR DRESSING TOMORROW AND YOU CAN SHOWER AT THAT TIME....DO NOT SUBMERSE YOUR PUNCTURE SITE IN WATER FOR A FEW DAYS TO PREVENT INFECTION - SO NO TUB BATHS, POOLS, HOT TUBS, DISHES....ETC *ANY SIGNS OF BLEEDING (HARDNESS, SWELLING, OR EXCESSIVE BRUISING) HOLD DIRECT PRESSURE ON YOUR PUNCTURE SITE AND COME TO THE NEAR EMERGENCY ROOM TO GET YOUR PUNCTURE SITE LOOKED AT - DO NOT DRIVE YOURSELF! EITHER CALL EMS OR HAVE SOMEONE DRIVE YOU!! Discharge Disposition: HOME SELF-CARE
--- NOTE | 2022-11-22 12:24 | P.PN ---
Subjective Progress Note Date: 11/22/22 History of present illness: This is a 62-year-old male with past medical history of hypertension, diabetes, dyslipidemia presented to the hospital with chest pain 7/10 intensity with left arm radiation. EKG showed sinus rhythm with inferior ST segment depression and subtle ST elevation in leads 1 and aVL. Patient was taken to the landscape laborer urgently. Today, patient is seen in the cardiac stepdown unit. Yesterday, patient underwent left heart catheterization with Dr London Alcala which revealed right coronary artery with 80-90% stenosis in mid LAD 70% stenosis. Patient subsequently underwent stent placement of the RCA and plan is for medical management of the LAD. Echocardiogram revealed EF 50-55% with mild MR and TR. Patient is seen today in follow-up. He denies having any chest pain or shortness of breath, no lightheadedness or dizziness. He has ambulated in his room. Patient's heart rate has been in the 90s, blood pressure 163/89, pulse ox 97% on room air. 11/22 Patient is seen today in follow-up. He denies having any chest pain, shortness of breath, lightheadedness or dizziness. He has been in delaying quite a bit and telemetry is sinus rhythm, blood pressure 127/75. Physical examination: Gen: This is a 62-year-old male. He is resting bed appears to be comfortable and in no acute distress VS: reviewed HEENT: Head is atraumatic, normocephalic. Pupils equal, round. Sclerae is anicteric. NECK: Supple. No JVD. . LUNGS: Clear to auscultation. No wheezes or rhonchi. No intercostal retractions. HEART: Regular rate and rhythm. No murmur. ABDOMEN: Soft No tenderness. EXTREMITIES: No pedal edema. No calf tenderness. NEUROLOGICAL: Patient is awake, alert and oriented x3. Assessment: Non-ST elevated myocardial infarction status post stent mid RCA 8/2 Hypertension Diabetes Dyslipidemia Plan: Continue current cardiac medications, new prescriptions have been sent to his pharmacy Continue increased dose of metoprolol 50 mg twice daily Patient is cleared from cardiology for discharge home may follow up in the office with Dr. Santos in one week Nurse practitioner note has been reviewed, I agree with documented findings and plan of care. Patient was seen and examined. Objective - Vital Signs Vital signs: Vital Signs Temp 97.9 F 08/04/23 04:00 Pulse 108 H 11/22/22 08:00 Resp 16 11/22/22 08:00 BP 127/75 11/22/22 08:00 Pulse Ox 97 11/22/22 04:00 FiO2 21 11/20/22 20:43 Intake & Output 11/21/22 11/22/22 11/22/22 18:59 06:59 18:59 Intake Total 1640 240 Balance 1640 240 Weight 95.254 kg Intake: Oral 1640 240 Other: Voiding Method Toilet Toilet Toilet # Voids 2 2 - Labs CBC & Chem 7: 11/21/22 06:58 11/22/22 07:11 Labs: Abnormal Lab Results - Last 24 Hours (Table) 11/21/22 11/21/22 11/21/22 Range/Units 06:58 16:52 20:10 Sodium (137-145) mmol/L Glucose (74-99) mg/dL POC Glucose (mg/dL) 142 H 128 H (70-110) mg/dL Triglycerides 346.00 H (0.00-149.00) mg/dL Cholesterol 246.00 H (0.00-200.00) mg/dL LDL Cholesterol, Calc 139.0 H (0.0-131.0) mg/dL VLDL Cholesterol, Calc 69.20 H (5.00-40.00) mg/dL HDL Cholesterol 37.80 L (40.00-60.00) mg/dL 11/22/22 11/22/22 11/22/22 Range/Units 06:00 07:11 11:15 Sodium 136 L (137-145) mmol/L Glucose 124 H (74-99) mg/dL POC Glucose (mg/dL) 120 H 169 H (70-110) mg/dL Triglycerides (0.00-149.00) mg/dL Cholesterol (0.00-200.00) mg/dL LDL Cholesterol, Calc (0.0-131.0) mg/dL VLDL Cholesterol, Calc (5.00-40.00) mg/dL HDL Cholesterol (40.00-60.00) mg/dL
== END 2022-11-22 13:05 | disposition home or self-care (01) | DRG 247 ==
LOC: EC 08:15 → 3SCARD 09:53
PROVIDERS: ADMIT Internal Medicine; ATTEND Internal Medicine
PROC: 027034Z Dilation of Coronary Artery, One Artery with Drug-eluting Intraluminal Device, Percutaneous Approach (ICD-10-PCS; principal; 2022-11-20 12:05)
PROC: 4A023N7 Measurement of Cardiac Sampling and Pressure, Left Heart, Percutaneous Approach (ICD-10-PCS; 2022-11-20 12:05)
PROC: B2111ZZ Fluoroscopy of Multiple Coronary Arteries using Low Osmolar Contrast (ICD-10-PCS; 2022-11-20 12:05)
DX: I21.4 Non-ST elevation (NSTEMI) myocardial infarction (principal); E66.3 Overweight; E78.5 Hyperlipidemia, unspecified; I10 Essential (primary) hypertension; E11.9 Type 2 diabetes mellitus without complications; I25.110 Atherosclerotic heart disease of native coronary artery with unstable angina pectoris; Z68.29 Body mass index [BMI] 29.0-29.9, adult; Z79.84 Long term (current) use of oral hypoglycemic drugs; Z79.899 Other long term (current) drug therapy; Z80.8 Family history of malignant neoplasm of other organs or systems; Z88.8 Allergy status to other drugs, medicaments and biological substances
CPT/HCPCS: 36415; 71046; 80048; 80053; 80061; 82150; 83036; 83690; 83735; 84484; 85025; 85379; 85610; 85730; 92978; 93005; 93306; 93458; 94760; 96365; 99291